=== PATIENT | male | born 1945 | race Caucasian/White ===

== ENCOUNTER 2020-12-21 10:03 | Inpatient (IN) | payer MEDICARE, MEDICAID ==
[~2020-12-21] VITALS: Ht 177.8 cm; Wt 140.9 kg
[~2020-12-21 10:03] MED LIST: ACET-2247 PO; CLON0.1T2 PO; FURO20 PO; POTA8TAB71 PO; VIT60OIN3 TP
[2020-12-21] MEDS ORDERED: VANCOMYCIN HCL 1 GM/D5% WATER 200 ML IV ONE (11:00)
[2020-12-21 12:56] LABS: BASOPHILS % (AUTO) 0.9 % (0.0-2.0); EOSINOPHILS % (AUTO) 2.6 % (1.0-6.0); HEMATOCRIT 42.8 % (41-53); HEMOGLOBIN 13.7 g/dL (13.5-17.5); LYMPHOCYTES # (AUTO) 1.4 K/uL (1.0-4.8); LYMPHOCYTES % (AUTO) 19.1 % (22.0-44.0); MEAN CORPUSCULAR HEMOGLOBIN 26.6 pg (26.0-34.0); MEAN CORPUSCULAR HGB CONC 32.1 G/dL (31.0-37.0); MEAN CORPUSCULAR VOLUME 83 fL (80-100); MONOCYTES # (AUTO) 0.6 K/uL (0.1-1.0); MONOCYTES % (AUTO) 7.9 % (2.0-9.0); NEUTROPHILS # (AUTO) 5.1 K/uL (1.8-7.7); NEUTROPHILS % (AUTO) 69.5 % (40.0-70.0); PLATELET COUNT (AUTO) 239 K/uL (150-450); RED BLOOD CELL COUNT(AUTO) 5.17 MIL/uL (4.50-5.90); RED CELL DISTRIBUTION WIDTH 16.1 % (11.5-14.5)
[2020-12-21 13:03] LABS: CALCIUM, TOTAL 8.6 mg/dL (8.8-10.5); CREATININE 1.19 mg/dL (0.60-1.30); POTASSIUM 4.4 mmol/L (3.5-5.1)
[2020-12-21 13:11] LABS: LACTIC ACID 0.8 mmol/L (0.4-2.0)
[2020-12-21 13:27] LABS: ALBUMIN 3.3 g/dL (3.4-5.0); BILIRUBIN,TOTAL 0.4 mg/dL (0.1-1.0); TOTAL PROTEIN, SERUM 7.7 g/dL (6.4-8.2)
[2020-12-21 13:38] LABS: COVID AG,FIA SOURCE NASOPHARYNGEAL
[2020-12-21] MEDS ORDERED: CloNIDine HCL 0.1 MG TABLET PO PRN (14:00)
[2020-12-21] MEDS ORDERED: AmLODIPine BESYLATE 5 MG TABLET PO SCH (14:00)
[2020-12-21] MEDS ORDERED: ACETAMINOPHEN 325 MG TABLET PO PRN (14:00)
[2020-12-21] MEDS: SULFAMETHOX/TRIMETH DS 800-160 MG/TABLET PO SCH ×2 (14:31→20:58)
[2020-12-21] MEDS: HEPARIN SODIUM,PORCINE 5,000 UNITS/ML VIAL SQ SCH ×2 (15:57→23:45)
[2020-12-21] MEDS: OxyCODONE HCL/ACETAMINOPHEN 5-325 MG TABLET PO PRN ×2 (16:02→23:47)
[2020-12-21 19:02] VITALS: BP 160/72
[2020-12-21] MEDS: DOCUSATE SODIUM 100 MG CAPSULE PO SCH (20:58)
[2020-12-21] MEDS: LOSARTAN POTASSIUM 25 MG TABLET PO SCH (20:58)
[2020-12-22 00:02] VITALS: BP 148/71
[2020-12-22] MEDS: OxyCODONE HCL/ACETAMINOPHEN 5-325 MG TABLET PO PRN ×2 (04:07→08:34)
[2020-12-22 04:08] VITALS: BP 128/64
[2020-12-22] MEDS ORDERED: INFLUENZA VIRUS VACCINE QVS 2020-21 (6MO+)/PF 60 MCG/0.5 ML SYRINGE IM ONE (06:15)
[2020-12-22 08:06] VITALS: BP 134/76
[2020-12-22] MEDS: ASPIRIN 81 MG CHEWABLE TABLET PO SCH (08:34)
[2020-12-22] MEDS: LOSARTAN POTASSIUM 25 MG TABLET PO SCH ×2 (08:34→20:21)
[2020-12-22] MEDS: FAMOTIDINE 20 MG TABLET PO SCH (08:34)
[2020-12-22] MEDS: DOCUSATE SODIUM 100 MG CAPSULE PO SCH ×2 (08:34→20:21)
[2020-12-22] MEDS: HEPARIN SODIUM,PORCINE 5,000 UNITS/ML VIAL SQ SCH ×2 (08:35→16:15)
[2020-12-22] MEDS: SULFAMETHOX/TRIMETH DS 800-160 MG/TABLET PO SCH ×2 (08:40→20:21)
[2020-12-22 11:35] VITALS: BP 128/74
[2020-12-22 16:03] VITALS: BP 135/72
[2020-12-22 20:10] VITALS: BP 141/53
[2020-12-23 00:10] VITALS: BP 125/59
[2020-12-23] MEDS: HEPARIN SODIUM,PORCINE 5,000 UNITS/ML VIAL SQ SCH ×4 (00:23→23:49)
[2020-12-23 04:45] VITALS: BP 140/69
[2020-12-23] MEDS: OxyCODONE HCL/ACETAMINOPHEN 5-325 MG TABLET PO PRN (05:04)
[2020-12-23 08:50] VITALS: BP 124/51
[2020-12-23] MEDS: DOCUSATE SODIUM 100 MG CAPSULE PO SCH ×2 (09:04→21:57)
[2020-12-23] MEDS: FAMOTIDINE 20 MG TABLET PO SCH (09:04)
[2020-12-23] MEDS: ASPIRIN 81 MG CHEWABLE TABLET PO SCH (09:04)
[2020-12-23] MEDS: LOSARTAN POTASSIUM 25 MG TABLET PO SCH ×2 (09:04→21:57)
[2020-12-23] MEDS: SULFAMETHOX/TRIMETH DS 800-160 MG/TABLET PO SCH ×2 (09:04→21:57)
[2020-12-23 09:36] LABS: BILIRUBIN,URINE NEGATIVE (NEGATIVE); GLUCOSE, URINE (UA) NEGATIVE (NEGATIVE); KETONES,URINE NEGATIVE (NEGATIVE); NITRATE,URINE NEGATIVE (NEGATIVE); PH,URINE 6.5 (5.0-8.0); PROTEIN,URINE NEGATIVE (NEGATIVE); UROBILINOGEN,URINE 0.2 mg/dL (<=1.0)
[2020-12-23 09:47] LABS: APPEARANCE,URINE HAZY (CLEAR); LEUKOCYTE ESTERASE ,URINE SMALL (NEGATIVE); OCCULT BLOOD,URINE SMALL (NEGATIVE)
[2020-12-23 09:50] LABS: BACTERIA,URINE Many /HPF (None Seen)
[2020-12-23 12:25] VITALS: BP 128/53
[2020-12-23 16:35] VITALS: BP 131/65
[2020-12-23 19:55] VITALS: BP 116/67
[2020-12-24] VITALS: BP 123/57
[2020-12-24 04:25] VITALS: BP 141/64
[2020-12-24] MEDS: OxyCODONE HCL/ACETAMINOPHEN 5-325 MG TABLET PO PRN (04:51)
[2020-12-24] MEDS: HEPARIN SODIUM,PORCINE 5,000 UNITS/ML VIAL SQ SCH (08:00)
[2020-12-24] MEDS: LOSARTAN POTASSIUM 25 MG TABLET PO SCH (08:00)
[2020-12-24] MEDS: DOCUSATE SODIUM 100 MG CAPSULE PO SCH (08:00)
[2020-12-24] MEDS: ASPIRIN 81 MG CHEWABLE TABLET PO SCH (08:00)
[2020-12-24] MEDS: FAMOTIDINE 20 MG TABLET PO SCH (08:00)
[2020-12-24] MEDS: SULFAMETHOX/TRIMETH DS 800-160 MG/TABLET PO SCH (08:00)
[2020-12-24 08:08] VITALS: BP 125/59
[2020-12-24] MEDS ORDERED: FUROSEMIDE 40 MG/4 ML VIAL IVP ONE (12:45)
[2020-12-24] MEDS ORDERED: ASPI81TA87 PO (14:02)
[2020-12-24] MEDS ORDERED: DOCU-275 PO (14:02)
[2020-12-24] MEDS ORDERED: FUROSEMIDE 40 MG/4 ML VIAL IVP SCH (21:00)
== END 2020-12-24 14:20 | DRG 603 ==
LOC: EMS 10:07 → 6N 18:01
PROVIDERS: ADMIT Internal Medicine; ATTEND Internal Medicine
DX: L03.115 Cellulitis of right lower limb (principal); N39.0 Urinary tract infection, site not specified; I25.10 Atherosclerotic heart disease of native coronary artery without angina pectoris; I10 Essential (primary) hypertension; I89.0 Lymphedema, not elsewhere classified; I87.8 Other specified disorders of veins; L03.116 Cellulitis of left lower limb; K21.9 Gastro-esophageal reflux disease without esophagitis; Z20.822 Contact with and (suspected) exposure to COVID-19; J44.9 Chronic obstructive pulmonary disease, unspecified; Z87.891 Personal history of nicotine dependence; Z91.041 Radiographic dye allergy status; Z28.21 Immunization not carried out because of patient refusal
CPT/HCPCS: 83605; 87040; 87081; 87086; 87426; 93970; 99285; J1644; J1940; J3370

== ENCOUNTER 2022-03-07 15:43 | Emergency (ER) | payer MEDICAID, MEDICARE ==
[~2022-03-07] VITALS: Ht 172.7 cm; Wt 132.9 kg
[~2022-03-07 15:43] MED LIST changes: +ASPI81TA87 PO; +DOCU-385 PO; +FAMO20 PO
[2022-03-07 17:34] LABS: BASOPHILS % (AUTO) 0.2 % (0.0-2.0); EOSINOPHILS % (AUTO) 3.6 % (1.0-6.0); HEMATOCRIT 36.9 % (41-53); HEMOGLOBIN 11.9 g/dL (13.5-17.5); LYMPHOCYTES # (AUTO) 1.4 K/uL (1.0-4.8); LYMPHOCYTES % (AUTO) 15.1 % (22.0-44.0); MEAN CORPUSCULAR HEMOGLOBIN 25.9 pg (26.0-34.0); MEAN CORPUSCULAR HGB CONC 32.1 G/dL (31.0-37.0); MEAN CORPUSCULAR VOLUME 81 fL (80-100); MONOCYTES # (AUTO) 0.6 K/uL (0.1-1.0); MONOCYTES % (AUTO) 6.9 % (2.0-9.0); NEUTROPHILS # (AUTO) 6.9 K/uL (1.8-7.7); NEUTROPHILS % (AUTO) 74.2 % (40.0-70.0); PLATELET COUNT (AUTO) 263 K/uL (150-450); RED BLOOD CELL COUNT(AUTO) 4.59 MIL/uL (4.50-5.90); RED CELL DISTRIBUTION WIDTH 16.1 % (11.5-14.5)
[2022-03-07 17:37] LABS: ANION GAP 6 mmol/L (8-16); CALCIUM, TOTAL 8.4 mg/dL (8.8-10.5); CARBON DIOXIDE 31 mmol/L (22-29); CHLORIDE 102 mmol/L (98-107); CREATININE 1.04 mg/dL (0.60-1.30); GLOMERULAR FILTR. RATE CALC > 60 mL/min (>60); GLUCOSE,RANDOM 91 mg/dL (70-110); POTASSIUM 3.8 mmol/L (3.5-5.1); SODIUM SERUM 139 mmol/L (136-145); UREA NITROGEN, BLOOD 15 mg/dL (7-18)
[2022-03-07 17:43] LABS: ALANINE AMINOTRANSFERASE 19 U/L (12-78); ALBUMIN 2.4 g/dL (3.4-5.0); ALKALINE PHOSPHATASE 68 U/L (46-116); ASPARTATE AMINOTRANSFERASE 18 U/L (15-37); BILIRUBIN,TOTAL 0.3 mg/dL (0.1-1.0); TOTAL PROTEIN, SERUM 8.8 g/dL (6.4-8.2)
[2022-03-07 17:59] LABS: B-TYPE NATRIURETIC PEPTIDE 208 pg/mL (0-100)
[2022-03-07] MEDS ORDERED: BACITRACIN ZINC/POLYMYXIN B 14.2 GM OINTMENT TP ONE (19:30)
[2022-03-07] MEDS ORDERED: CEPHALEXIN MONOHYDRATE 500 MG CAPSULE PO ONE (19:30)
[2022-03-07] MEDS ORDERED: SULFAMETHOX/TRIMETH DS 800-160 MG/TABLET PO ONE (19:30)
[2022-03-07 20:25] VITALS: BP 159/78
[2022-03-07] MEDS ORDERED: CEPH-558 PO (21:02)
[2022-03-07] MEDS ORDERED: POTA8TAB71 PO (21:02)
[2022-03-07] MEDS ORDERED: LOSA-382 PO (21:02)
[2022-03-07] MEDS ORDERED: SPIR50TA27 PO (21:02)
[2022-03-07] MEDS ORDERED: BACTDSB PO (21:02)
[2022-03-07] MEDS ORDERED: NYST15PO3 TP (21:02)
[2022-03-07] MEDS ORDERED: AMMO225L14 TP (21:02)
[2022-03-07] MEDS ORDERED: FURO40 PO (21:02)
[2022-03-07] MEDS ORDERED: BACI28OI29 TP (21:02)
[2022-03-07] MEDS ORDERED: ATOR40TA28 PO (21:02)
== END 2022-03-07 21:54 | disposition home or self-care (01) ==
LOC: EMS 15:43
DX: L03.116 Cellulitis of left lower limb (principal); L03.115 Cellulitis of right lower limb; I87.8 Other specified disorders of veins; I87.2 Venous insufficiency (chronic) (peripheral); I10 Essential (primary) hypertension; J44.9 Chronic obstructive pulmonary disease, unspecified; K21.9 Gastro-esophageal reflux disease without esophagitis; F17.210 Nicotine dependence, cigarettes, uncomplicated; Z88.8 Allergy status to other drugs, medicaments and biological substances; Z79.899 Other long term (current) drug therapy
CPT/HCPCS: 80053; 83880; 85025; 99284

== ENCOUNTER 2022-04-17 07:01 | Emergency (ER) | payer MEDICAID ==
[~2022-04-17] VITALS: Ht 175.3 cm; Wt 136.4 kg
[~2022-04-17 07:01] MED LIST changes: +AMMO225L14 TP; +ATOR40TA28 PO; +BACI28OI29 TP; +BACTDSB PO; +CEPH-558 PO; +FURO40 PO; +LOSA-382 PO; +NYST15PO3 TP; +SPIR50TA27 PO
[2022-04-17] MEDS ORDERED: ASPIRIN 81 MG CHEWABLE TABLET PO ONE (07:15)
[2022-04-17 07:49] LABS: EOSINOPHILS % (AUTO) 3.5 % (1.0-6.0); HEMATOCRIT 34.4 % (41-53); LYMPHOCYTES # (AUTO) 1.4 K/uL (1.0-4.8); LYMPHOCYTES % (AUTO) 25.2 % (22.0-44.0); MEAN CORPUSCULAR HEMOGLOBIN 26.3 pg (26.0-34.0); MEAN CORPUSCULAR VOLUME 82 fL (80-100); MONOCYTES # (AUTO) 0.5 K/uL (0.1-1.0); MONOCYTES % (AUTO) 7.9 % (2.0-9.0); NEUTROPHILS # (AUTO) 3.6 K/uL (1.8-7.7); NEUTROPHILS % (AUTO) 62.4 % (40.0-70.0); PLATELET COUNT (AUTO) 198 K/uL (150-450); RED BLOOD CELL COUNT(AUTO) 4.19 MIL/uL (4.50-5.90); RED CELL DISTRIBUTION WIDTH 18.2 % (11.5-14.5)
[2022-04-17] MEDS ORDERED: DOXY-354 PO (07:57)
[2022-04-17] MEDS ORDERED: LISI-894 PO (07:57)
[2022-04-17 08:08] LABS: CALCIUM, TOTAL 8.2 mg/dL (8.8-10.5); CREATININE 1.21 mg/dL (0.60-1.30); POTASSIUM 4.2 mmol/L (3.5-5.1)
[2022-04-17 08:34] LABS: ALBUMIN 2.5 g/dL (3.4-5.0); BILIRUBIN,TOTAL 0.2 mg/dL (0.1-1.0); TOTAL PROTEIN, SERUM 7.6 g/dL (6.4-8.2)
[2022-04-17 10:04] VITALS: BP 125/60
[2022-04-17] MEDS ORDERED: IBUP-2070 PO (10:21)
[2022-04-18] MEDS ORDERED: VITS42.53 TP (12:48)
[2022-04-20] MEDS ORDERED: ATOR40TA71 PO (13:30)
[2022-04-20] MEDS ORDERED: ASPI81 PO (13:30)
== END 2022-04-17 13:19 | disposition home or self-care (01) ==
LOC: EMS 07:01
DX: M25.512 Pain in left shoulder (principal); F10.20 Alcohol dependence, uncomplicated; F17.210 Nicotine dependence, cigarettes, uncomplicated; I10 Essential (primary) hypertension; I25.10 Atherosclerotic heart disease of native coronary artery without angina pectoris; J44.9 Chronic obstructive pulmonary disease, unspecified; K21.9 Gastro-esophageal reflux disease without esophagitis
CPT/HCPCS: 71045; 80053; 82550; 83880; 84484; 85025; 93005; 99285; 36415-L1; 36415-TC

== ENCOUNTER 2022-05-10 13:21 | Emergency (ER) | payer MEDICAID, MEDICARE ==
[~2022-05-10] VITALS: Ht 175.3 cm; Wt 131.8 kg
[~2022-05-10 13:21] MED LIST changes: -ACET-2247 PO; -AMMO225L14 TP; +ASPI81 PO; -ASPI81TA87 PO; -ATOR40TA28 PO; +ATOR40TA71 PO; -BACI28OI29 TP; -BACTDSB PO; -CEPH-558 PO; -CLON0.1T2 PO; -DOCU-385 PO; -FAMO20 PO; -FURO20 PO; -LOSA-382 PO; -NYST15PO3 TP; -VIT60OIN3 TP
[2022-05-10 14:15] LABS: BASOPHILS % (AUTO) 0.8 % (0.0-2.0); EOSINOPHILS % (AUTO) 3.7 % (1.0-6.0); HEMATOCRIT 37.6 % (41-53); HEMOGLOBIN 11.9 g/dL (13.5-17.5); LYMPHOCYTES # (AUTO) 1.2 K/uL (1.0-4.8); MEAN CORPUSCULAR HEMOGLOBIN 26.1 pg (26.0-34.0); MEAN CORPUSCULAR HGB CONC 31.8 G/dL (31.0-37.0); MEAN CORPUSCULAR VOLUME 82 fL (80-100); MONOCYTES # (AUTO) 0.5 K/uL (0.1-1.0); MONOCYTES % (AUTO) 11.2 % (2.0-9.0); NEUTROPHILS # (AUTO) 2.4 K/uL (1.8-7.7); NEUTROPHILS % (AUTO) 56.3 % (40.0-70.0); PLATELET COUNT (AUTO) 200 K/uL (150-450); RED BLOOD CELL COUNT(AUTO) 4.57 MIL/uL (4.50-5.90); RED CELL DISTRIBUTION WIDTH 17.3 % (11.5-14.5)
[2022-05-10 14:23] LABS: ANION GAP 4 mmol/L (8-16); CALCIUM, TOTAL 8.5 mg/dL (8.8-10.5); CARBON DIOXIDE 32 mmol/L (22-29); CHLORIDE 106 mmol/L (98-107); CREATININE 1.06 mg/dL (0.60-1.30); GLOMERULAR FILTR. RATE CALC > 60 mL/min (>60); GLUCOSE,RANDOM 106 mg/dL (70-110); POTASSIUM 3.9 mmol/L (3.5-5.1); SODIUM SERUM 142 mmol/L (136-145); UREA NITROGEN, BLOOD 20 mg/dL (7-18)
[2022-05-10 14:28] LABS: INR 1.1 (0.9-1.1); PROTHROMBIN TIME 11.7 SEC (9.4-11.6)
[2022-05-10 14:29] LABS: ALANINE AMINOTRANSFERASE 21 U/L (12-78); ALBUMIN 2.7 g/dL (3.4-5.0); ALKALINE PHOSPHATASE 67 U/L (46-116); ASPARTATE AMINOTRANSFERASE 18 U/L (15-37); BILIRUBIN,TOTAL 0.2 mg/dL (0.1-1.0); TOTAL PROTEIN, SERUM 7.1 g/dL (6.4-8.2)
[2022-05-10 14:32] LABS: B-TYPE NATRIURETIC PEPTIDE 128 pg/mL (0-100)
[2022-05-10 15:46] VITALS: BP 146/70
== END 2022-05-10 16:58 | disposition home or self-care (01) ==
LOC: EMS 13:22
DX: R07.89 Other chest pain (principal); I10 Essential (primary) hypertension; J44.9 Chronic obstructive pulmonary disease, unspecified; K21.9 Gastro-esophageal reflux disease without esophagitis; F17.210 Nicotine dependence, cigarettes, uncomplicated; Z88.8 Allergy status to other drugs, medicaments and biological substances; Z79.899 Other long term (current) drug therapy
CPT/HCPCS: 71045; 80053; 83880; 84484; 85025; 85610; 85730; 93005; 99285; 36415-L1; 36415-TC

== ENCOUNTER 2022-05-13 10:55 | Emergency (ER) | payer MEDICARE, MEDICAID ==
[~2022-05-13] VITALS: Ht 175.3 cm; Wt 136.4 kg
[2022-05-13 11:37] LABS: BASOPHILS % (AUTO) 0.5 % (0.0-2.0); EOSINOPHILS % (AUTO) 0.9 % (1.0-6.0); HEMATOCRIT 40.9 % (41-53); HEMOGLOBIN 13.1 g/dL (13.5-17.5); LYMPHOCYTES # (AUTO) 0.7 K/uL (1.0-4.8); LYMPHOCYTES % (AUTO) 10.7 % (22.0-44.0); MEAN CORPUSCULAR HEMOGLOBIN 26.2 pg (26.0-34.0); MEAN CORPUSCULAR HGB CONC 32.2 G/dL (31.0-37.0); MEAN CORPUSCULAR VOLUME 82 fL (80-100); MONOCYTES # (AUTO) 0.4 K/uL (0.1-1.0); MONOCYTES % (AUTO) 5.8 % (2.0-9.0); NEUTROPHILS % (AUTO) 82.1 % (40.0-70.0); PLATELET COUNT (AUTO) 182 K/uL (150-450); RED BLOOD CELL COUNT(AUTO) 5.01 MIL/uL (4.50-5.90)
[2022-05-13 11:41] LABS: ANION GAP 7 mmol/L (8-16); CALCIUM, TOTAL 8.3 mg/dL (8.8-10.5); CARBON DIOXIDE 29 mmol/L (22-29); CHLORIDE 101 mmol/L (98-107); GLUCOSE,RANDOM 88 mg/dL (70-110); SODIUM SERUM 137 mmol/L (136-145); UREA NITROGEN, BLOOD 10 mg/dL (7-18)
[2022-05-13 11:43] LABS: GLOMERULAR FILTR. RATE CALC > 60 mL/min (>60)
[2022-05-13 11:46] LABS: INR 1.2 (0.9-1.1); PROTHROMBIN TIME 12.5 SEC (9.4-11.6)
[2022-05-13 11:47] LABS: ALANINE AMINOTRANSFERASE 17 U/L (12-78); ALBUMIN 2.8 g/dL (3.4-5.0); ALKALINE PHOSPHATASE 74 U/L (46-116); ASPARTATE AMINOTRANSFERASE 18 U/L (15-37); BILIRUBIN,TOTAL 0.7 mg/dL (0.1-1.0); TOTAL PROTEIN, SERUM 7.5 g/dL (6.4-8.2)
[2022-05-13 11:55] LABS: B-TYPE NATRIURETIC PEPTIDE 130 pg/mL (0-100)
[2022-05-13 13:40] VITALS: BP 141/72
== END 2022-05-13 15:36 | disposition home or self-care (01) ==
LOC: EMS 11:07
DX: R07.89 Other chest pain (principal); F41.9 Anxiety disorder, unspecified; F10.20 Alcohol dependence, uncomplicated; F17.210 Nicotine dependence, cigarettes, uncomplicated; I10 Essential (primary) hypertension; I25.10 Atherosclerotic heart disease of native coronary artery without angina pectoris; I89.0 Lymphedema, not elsewhere classified; J44.9 Chronic obstructive pulmonary disease, unspecified; K21.9 Gastro-esophageal reflux disease without esophagitis
CPT/HCPCS: 71045; 80053; 83880; 84484; 85025; 85610; 85730; 93005; 99285; 36415-L1; 36415-TC

== ENCOUNTER 2022-09-01 00:41 | Emergency (ER) | payer MEDICAID, MEDICARE ==
[~2022-09-01] VITALS: Ht 177.8 cm; Wt 131.8 kg
[~2022-09-01 00:41] MED LIST changes: +SULF1TAB42 PO
[2022-09-01] MEDS ORDERED: SODIUM CHLORIDE 0.9% 250 ML IRRIG SOLUTION BOTTLE IRRIG ONE (02:00)
[2022-09-01] MEDS ORDERED: PERTUSS(ACELL),DIPH,TET VAC/PF 0.5 ML SYRINGE IM. ONE (02:00)
[2022-09-01] MEDS ORDERED: BACITRACIN 0.9 GM PACKET OINTMENT TP ONE (02:00)
[2022-09-01] MEDS ORDERED: ACETAMINOPHEN 500 MG TABLET PO ONE (06:00)
[2022-09-01 06:32] VITALS: BP 124/77
== END 2022-09-01 07:09 | disposition home or self-care (01) ==
LOC: EMS 00:42
DX: S00.83XA Contusion of other part of head, initial encounter (principal); F10.20 Alcohol dependence, uncomplicated; J44.9 Chronic obstructive pulmonary disease, unspecified; I10 Essential (primary) hypertension; K21.9 Gastro-esophageal reflux disease without esophagitis; I25.10 Atherosclerotic heart disease of native coronary artery without angina pectoris; I25.2 Old myocardial infarction; F17.210 Nicotine dependence, cigarettes, uncomplicated; F12.90 Cannabis use, unspecified, uncomplicated; Z90.49 Acquired absence of other specified parts of digestive tract; W01.118A Fall on same level from slipping, tripping and stumbling with subsequent striking against other sharp object, initial encounter; Y93.84 Activity, sleeping; Y92.89 Other specified places as the place of occurrence of the external cause; Y99.8 Other external cause status
CPT/HCPCS: 70450; 72125; 90471; 90715; 99285

== ENCOUNTER 2024-01-21 21:13 | Emergency (ER) | payer MEDICARE, MEDICAID ==
[~2024-01-21] VITALS: Ht 175.3 cm; Wt 136.4 kg
[~2024-01-21 21:13] MED LIST changes: +AMLO-257 PO; +ASPI-1450 PO; -ASPI81 PO; +ERGO500054 PO; +METO-408 PO; +PANT20TA18 PO; -POTA8TAB71 PO; -SPIR50TA27 PO; -SULF1TAB42 PO
[2024-01-22 01:33] VITALS: PULSE 66; RESP 18; O2SAT 86
[2024-01-22] MEDS: ALBUTEROL SULFATE 2.5 MG/0.5 ML NEB SOLUTION NEB ONE (01:33)
[2024-01-22] MEDS: IPRATROPIUM BROMIDE 0.5 MG/2.5 ML NEB SOLUTION NEB ONE (01:33)
[2024-01-22 01:48] VITALS: PULSE 71; RESP 18; O2SAT 95
[2024-01-22 03:30] VITALS: BP 133/94; PULSE 78; RESP 20; TEMP 98.7
== END 2024-01-22 04:09 | disposition home or self-care (01) ==
LOC: EMS 21:13
DX: R04.0 Epistaxis (principal); J44.9 Chronic obstructive pulmonary disease, unspecified; I25.10 Atherosclerotic heart disease of native coronary artery without angina pectoris; K21.9 Gastro-esophageal reflux disease without esophagitis; I25.2 Old myocardial infarction; F17.210 Nicotine dependence, cigarettes, uncomplicated; Z90.49 Acquired absence of other specified parts of digestive tract
CPT/HCPCS: 94640; 99283

== ENCOUNTER 2024-07-29 09:06 | Inpatient (IN) | payer MEDICARE, MEDICAID ==
[~2024-07-29] VITALS: Ht 180.3 cm; Wt 151.0 kg
[~2024-07-29 09:06] MED LIST changes: -AMLO-257 PO; +BUDE0.5A NEB; +BUME1TAB6 PO; -FURO40 PO; +FURO40TA6 PO; +IPRA3AMP24 NEB; -METO-408 PO; +METO25 PO; +NIFE-78 PO; -PANT20TA18 PO; +PANT40TA54 PO
[2024-07-29] MEDS ORDERED: ALBUTEROL SULFATE 2.5 MG/0.5 ML NEB SOLUTION NEB ONE (09:26)
[2024-07-29] MEDS ORDERED: IPRATROPIUM BROMIDE 0.5 MG/2.5 ML NEB SOLUTION NEB ONE (09:26)
[2024-07-29] MEDS ORDERED: EMPA10TA3 PO (09:30)
[2024-07-29] MEDS ORDERED: ALBU18HF12 IH (09:30)
[2024-07-29] MEDS ORDERED: BUSP10TA23 PO (09:30)
[2024-07-29] MEDS ORDERED: QUET25TA PO (09:30)
[2024-07-29] MEDS ORDERED: METO25XL PO (09:30)
[2024-07-29] MEDS ORDERED: FLUC200T85 PO (09:30)
[2024-07-29] MEDS ORDERED: AMLO-258 PO (09:30)
[2024-07-29] MEDS ORDERED: MELA5TAB40 PO (09:30)
[2024-07-29] MEDS ORDERED: SPIR-37 PO (09:30)
[2024-07-29] MEDS ORDERED: OXYC5 PO (09:30)
[2024-07-29 09:31] VITALS: PULSE 73; RESP 20; O2SAT 94
[2024-07-29] MEDS: IPRATROPIUM BROMIDE 0.5 MG/2.5 ML NEB SOLUTION NEB ONE (09:31)
[2024-07-29] MEDS: ALBUTEROL SULFATE 2.5 MG/0.5 ML 5 ML NEB SOLUTION NEB ONE (09:31)
[2024-07-29] MEDS: AZITHROMYCIN 500 MG/NS 250 ML IV ONE (09:49)
[2024-07-29] MEDS: MethylPREDNISolone SOD SUCC 125 MG/2 ML VIAL IVP ONE (09:49)
[2024-07-29] MEDS: CefTRIAXone 1 GM/DEXTROSE 50 ML IV ONE (09:49)
[2024-07-29 09:50] LABS: BASOPHILS % (AUTO) 0.7 % (0.0-2.0); EOSINOPHILS % (AUTO) 2.2 % (1.0-6.0); HEMATOCRIT 42.7 % (41-53); HEMOGLOBIN 13.2 g/dL (13.5-17.5); LYMPHOCYTES # (AUTO) 1.2 K/uL (1.0-4.8); LYMPHOCYTES % (AUTO) 13.8 % (22.0-44.0); MEAN CORPUSCULAR HEMOGLOBIN 26.1 pg (26.0-34.0); MEAN CORPUSCULAR VOLUME 84 fL (80-100); MONOCYTES # (AUTO) 0.6 K/uL (0.1-1.0); MONOCYTES % (AUTO) 6.8 % (2.0-9.0); NEUTROPHILS # (AUTO) 6.8 K/uL (1.8-7.7); NEUTROPHILS % (AUTO) 76.5 % (40.0-70.0); PLATELET COUNT (AUTO) 251 K/uL (150-450); RED BLOOD CELL COUNT(AUTO) 5.08 MIL/uL (4.50-5.90); RED CELL DISTRIBUTION WIDTH 15.4 % (11.5-14.5); WHITE BLOOD COUNT (AUTO) 8.8 K/uL (4.5-11.0)
[2024-07-29 10:02] LABS: PROTHROMBIN TIME 11.2 SEC (9.4-11.6)
[2024-07-29 10:07] LABS: TROPONIN I-HIGH SENSITIVITY 8 ng/L (<76)
[2024-07-29 10:09] LABS: B-TYPE NATRIURETIC PEPTIDE 27 pg/mL (0-100)
[2024-07-29 10:13] LABS: CARBON DIOXIDE 39 mmol/L (22-29)
[2024-07-29 10:18] LABS: ANION GAP 2 mmol/L (8-16); CALCIUM, TOTAL 8.5 mg/dL (8.8-10.5); CHLORIDE 97 mmol/L (98-107); CREATININE 0.97 mg/dL (0.60-1.30); GLOMERULAR FILTR. RATE CALC > 60 mL/min (>60); GLUCOSE,RANDOM 120 mg/dL (70-110); POTASSIUM 5.4 mmol/L (3.5-5.1); SODIUM SERUM 138 mmol/L (136-145); UREA NITROGEN, BLOOD 27 mg/dL (7-18)
[2024-07-29 10:19] LABS: ALANINE AMINOTRANSFERASE 23 U/L (12-78); ALBUMIN 2.7 g/dL (3.4-5.0); ALKALINE PHOSPHATASE 92 U/L (46-116); ASPARTATE AMINOTRANSFERASE 18 U/L (15-37); BILIRUBIN,TOTAL 0.2 mg/dL (0.1-1.0); CREATINE KINASE, TOTAL ONLY 32 U/L (39-308); TOTAL PROTEIN, SERUM 7.1 g/dL (6.4-8.2)
[2024-07-29 10:21] VITALS: PULSE 73; RESP 22; O2SAT 97
[2024-07-29] MEDS ORDERED: DEXTROSE 50%-WATER 25 GM/50 ML SYRINGE IVP PRN (11:00)
[2024-07-29] MEDS ORDERED: ALBUTEROL SULFATE 2.5 MG/0.5 ML NEB SOLUTION NEB PRN (11:00)
[2024-07-29] MEDS: MethylPREDNISolone SOD SUCC 125 MG/2 ML VIAL IVP SCH (11:03)
[2024-07-29 11:53] VITALS: BP 141/60; PULSE 86; RESP 20; TEMP 97.9; O2SAT 95
[2024-07-29] MEDS: FUROSEMIDE 40 MG TABLET PO SCH (12:52)
[2024-07-29] MEDS: INSULIN LISPRO 100 UNITS/ML SQ PRN (14:02)
[2024-07-29] MEDS ORDERED: OLANZapine 5 MG RAPDIS TABLET PO PRN (16:30)
[2024-07-29] MEDS: HEPARIN SODIUM,PORCINE 5,000 UNITS/ML VIAL SQ SCH (17:23)
[2024-07-29 19:45] VITALS: BP 113/59; PULSE 95; RESP 20; TEMP 97.9; O2SAT 93
[2024-07-29] MEDS: ESZOPICLONE 2 MG TABLET PO SCH (20:02)
[2024-07-29] MEDS: DOCUSATE SODIUM 100 MG CAPSULE PO SCH (20:02)
[2024-07-29] MEDS: OLANZapine 5 MG RAPDIS TABLET PO SCH (20:02)
[2024-07-29 23:16] LABS: GLUCOMETER DEV NAME(LOC) 5S.1C; GLUCOSE,POINT OF CARE 189 MG/DL (70-110)
[2024-07-30 00:45] VITALS: BP 149/79; PULSE 80; RESP 17; TEMP 98; O2SAT 95
[2024-07-30 05:10] LABS: GLUCOMETER DEV NAME(LOC) 5S.1C; GLUCOSE,POINT OF CARE 170 MG/DL (70-110)
[2024-07-30 05:30] VITALS: BP 144/56; PULSE 85; RESP 20; TEMP 97.7; O2SAT 95
[2024-07-30 08:00] VITALS: BP 108/52; PULSE 80; RESP 20; TEMP 97.7; O2SAT 94
[2024-07-30] MEDS: ASPIRIN 81 MG CHEWABLE TABLET PO SCH (08:58)
[2024-07-30] MEDS ORDERED: BuPROPion HCL 75 MG TABLET PO SCH (09:00)
[2024-07-30] MEDS: FAMOTIDINE 20 MG TABLET PO SCH (09:04)
[2024-07-30] MEDS: AmLODIPine BESYLATE 10 MG TABLET PO SCH (09:04)
[2024-07-30] MEDS: CefTRIAXone 1 GM/DEXTROSE 50 ML IV SCH (09:08)
[2024-07-30] MEDS: ACETAMINOPHEN 325 MG TABLET PO PRN (09:10)
[2024-07-30] MEDS ORDERED: SODIUM CHLORIDE 0.9% 250 ML IV ONE (09:16)
[2024-07-30 12:00] VITALS: BP 123/86; PULSE 85; RESP 14; TEMP 97.8; O2SAT 93
[2024-07-30 16:27] VITALS: BP 128/85; PULSE 82; RESP 18; TEMP 97.7; O2SAT 93
[2024-07-30 20:00] VITALS: BP 131/102; PULSE 88; RESP 18; TEMP 98.1; O2SAT 93
[2024-07-31 00:25] VITALS: BP 144/78; PULSE 75; RESP 18; TEMP 97.5; O2SAT 94
[2024-07-31] MEDS ORDERED: LORazepam 2 MG/ML VIAL IM PRN (01:30)
[2024-07-31] MEDS: LORazepam 2 MG/ML VIAL IVP PRN (01:52)
[2024-07-31 05:30] VITALS: BP 139/70; PULSE 91; RESP 18; TEMP 98.1; O2SAT 90
[2024-07-31 06:47] LABS: HEMATOCRIT 48.3 % (41-53); HEMOGLOBIN 15.2 g/dL (13.5-17.5); MEAN CORPUSCULAR HEMOGLOBIN 26.4 pg (26.0-34.0); MEAN CORPUSCULAR HGB CONC 31.6 G/dL (31.0-37.0); MEAN CORPUSCULAR VOLUME 84 fL (80-100); PLATELET COUNT (AUTO) 273 K/uL (150-450); RED BLOOD CELL COUNT(AUTO) 5.78 MIL/uL (4.50-5.90)
[2024-07-31 07:13] LABS: ALANINE AMINOTRANSFERASE 19 U/L (12-78); ALBUMIN 3.1 g/dL (3.4-5.0); ALKALINE PHOSPHATASE 81 U/L (46-116); ANION GAP 4 mmol/L (8-16); ASPARTATE AMINOTRANSFERASE 33 U/L (15-37); BILIRUBIN,TOTAL 0.3 mg/dL (0.1-1.0); CALCIUM, TOTAL 8.6 mg/dL (8.8-10.5); CARBON DIOXIDE 35 mmol/L (22-29); CHLORIDE 96 mmol/L (98-107); CREATININE 1.07 mg/dL (0.60-1.30); GLOMERULAR FILTR. RATE CALC > 60 mL/min (>60); GLUCOSE,RANDOM 129 mg/dL (70-110); POTASSIUM 5.4 mmol/L (3.5-5.1); SODIUM SERUM 135 mmol/L (136-145); TOTAL PROTEIN, SERUM 7.9 g/dL (6.4-8.2); UREA NITROGEN, BLOOD 39 mg/dL (7-18)
[2024-07-31] MEDS ORDERED: LORazepam 2 MG/ML VIAL IVP PRN (07:30)
[2024-07-31 07:38] LABS: BAND NEUTROPHILS % (MANUAL) 2 % (0-5); LYMPHOCYTES % (MANUAL) 8 % (22-44); MONOCYTES % (MANUAL) 3 % (2-9); SEGMENTED NEUTROPHILS % 87 % (40-70); TOTAL CELLS COUNTED 100
[2024-07-31 07:39] LABS: RBC MORPHOLOGY COMMENT NORMAL RBC MORPH
[2024-07-31 08:00] VITALS: BP 135/76; PULSE 97; RESP 19; TEMP 98.1; O2SAT 90
[2024-07-31] MEDS: SODIUM POLYSTYRENE SULFONATE 15 GM/60 ML SUSPENSION BOTTLE PO ONE (11:22)
[2024-07-31] MEDS: FUROSEMIDE 20 MG/2 ML VIAL IVP ONE (11:30)
[2024-07-31 11:37] LABS: GLUCOMETER DEV NAME(LOC) 5N.2C; GLUCOSE,POINT OF CARE 185 MG/DL (70-110)
[2024-07-31 11:37] LABS: GLUCOMETER DEV NAME(LOC) 5N.2C; GLUCOSE,POINT OF CARE 161 MG/DL (70-110)
[2024-07-31 11:37] LABS: GLUCOMETER DEV NAME(LOC) 5N.2C; GLUCOSE,POINT OF CARE 154 MG/DL (70-110)
[2024-07-31 11:37] LABS: GLUCOMETER DEV NAME(LOC) 5N.2C; GLUCOSE,POINT OF CARE 161 MG/DL (70-110)
[2024-07-31 11:37] LABS: GLUCOMETER DEV NAME(LOC) 5N.2C; GLUCOSE,POINT OF CARE 205 MG/DL (70-110)
[2024-07-31 11:37] LABS: GLUCOMETER DEV NAME(LOC) 5N.2C; GLUCOSE,POINT OF CARE 206 MG/DL (70-110)
[2024-07-31 11:37] LABS: GLUCOMETER DEV NAME(LOC) 5N.2C; GLUCOSE,POINT OF CARE 210 MG/DL (70-110)
[2024-07-31 12:12] VITALS: BP 133/72; PULSE 92; RESP 20; TEMP 98.1; O2SAT 96
[2024-07-31 17:22] VITALS: BP 129/54; PULSE 58; RESP 20; TEMP 98; O2SAT 96
[2024-07-31 20:00] VITALS: BP 139/80; PULSE 99; RESP 18; TEMP 97.9; O2SAT 95
[2024-08-01 02:21] LABS: GLUCOMETER DEV NAME(LOC) 6S.2; GLUCOSE,POINT OF CARE 194 MG/DL (70-110)
[2024-08-01 02:21] LABS: GLUCOMETER DEV NAME(LOC) 6S.2; GLUCOSE,POINT OF CARE 156 MG/DL (70-110)
[2024-08-01 04:00] VITALS: BP 146/80; PULSE 99; RESP 18; TEMP 98.6; O2SAT 95
[2024-08-01 08:00] LABS: GLUCOMETER DEV NAME(LOC) 6S.2; GLUCOSE,POINT OF CARE 160 MG/DL (70-110)
[2024-08-01] MEDS ORDERED: SODIUM CHLORIDE 0.9% 500 ML IV ONE (08:14)
[2024-08-01 09:29] VITALS: BP 136/78; PULSE 92; RESP 15; TEMP 98.7; O2SAT 94
[2024-08-01] MEDS ORDERED: CEFT1VIA65 IV (11:00)
[2024-08-01] MEDS ORDERED: FAMO20 PO (11:02)
[2024-08-01] MEDS ORDERED: ESZO2TAB46 PO (11:02)
[2024-08-01] MEDS ORDERED: OLAN7.5T22 PO (11:03)
[2024-08-01] MEDS ORDERED: FURO40TA6 PO (11:03)
[2024-08-01] MEDS ORDERED: ACET-2247 PO (11:04)
[2024-08-01] MEDS ORDERED: ALBU2.5V39 NEB (11:05)
[2024-08-01] MEDS ORDERED: OLAN5TAB52 PO (11:06)
[2024-08-01] MEDS ORDERED: PRED-554 PO (11:11)
[2024-08-01] MEDS ORDERED: INSU100V SQ (11:13)
[2024-08-01 15:23] LABS: HEMATOCRIT 47.1 % (41-53); HEMOGLOBIN 14.5 g/dL (13.5-17.5); MEAN CORPUSCULAR HGB CONC 30.7 G/dL (31.0-37.0); MEAN CORPUSCULAR VOLUME 85 fL (80-100); PLATELET COUNT (AUTO) 301 K/uL (150-450); RED BLOOD CELL COUNT(AUTO) 5.58 MIL/uL (4.50-5.90); RED CELL DISTRIBUTION WIDTH 15.8 % (11.5-14.5); WHITE BLOOD COUNT (AUTO) 12.6 K/uL (4.5-11.0)
[2024-08-01 15:30] LABS: CALCIUM, TOTAL 8.3 mg/dL (8.8-10.5); CHLORIDE 98 mmol/L (98-107); CREATININE 0.97 mg/dL (0.60-1.30); GLOMERULAR FILTR. RATE CALC > 60 mL/min (>60); GLUCOSE,RANDOM 158 mg/dL (70-110); POTASSIUM 4.8 mmol/L (3.5-5.1); SODIUM SERUM 140 mmol/L (136-145); UREA NITROGEN, BLOOD 45 mg/dL (7-18)
[2024-08-01 15:32] LABS: CARBON DIOXIDE 44 mmol/L (22-29)
[2024-08-01 15:33] LABS: ANION GAP 0 mmol/L (8-16)
[2024-08-01 15:35] VITALS: BP 142/74; PULSE 95; RESP 19; TEMP 98; O2SAT 96
[2024-08-01 15:56] LABS: RBC MORPHOLOGY COMMENT NORMAL RBC MORPH
[2024-08-01 15:59] LABS: BAND NEUTROPHILS % (MANUAL) 2 % (0-5); EOSINOPHILS % (MANUAL) 1 % (1-6); LYMPHOCYTES % (MANUAL) 8 % (22-44); MONOCYTES % (MANUAL) 5 % (2-9); SEGMENTED NEUTROPHILS % 84 % (40-70); TOTAL CELLS COUNTED 100
[2024-08-01 19:58] VITALS: BP 149/62; PULSE 73; RESP 18; TEMP 98; O2SAT 97
[2024-08-02 16:50] LABS: GLUCOMETER DEV NAME(LOC) 6S.2; GLUCOSE,POINT OF CARE 163 MG/DL (70-110)
[2024-08-02 16:50] LABS: GLUCOMETER DEV NAME(LOC) 6S.2; GLUCOSE,POINT OF CARE 158 MG/DL (70-110)
[2024-08-03 12:31] LABS: GLUCOMETER DEV NAME(LOC) 5N.1D; GLUCOSE,POINT OF CARE 182 MG/DL (70-110)
== END 2024-08-01 20:10 | DRG 291 ==
LOC: EMS 09:06 → EDH 10:52 → 5S 11:42 → 6S 07-31 12:00
PROVIDERS: ADMIT Internal Medicine; ATTEND Internal Medicine
DX: I11.0 Hypertensive heart disease with heart failure (principal); I50.33 Acute on chronic diastolic (congestive) heart failure; J96.21 Acute and chronic respiratory failure with hypoxia; J44.1 Chronic obstructive pulmonary disease with (acute) exacerbation; F23 Brief psychotic disorder; F31.60 Bipolar disorder, current episode mixed, unspecified; Z68.42 Body mass index [BMI] 45.0-49.9, adult; G47.33 Obstructive sleep apnea (adult) (pediatric); R41.0 Disorientation, unspecified; E66.01 Morbid (severe) obesity due to excess calories; I25.10 Atherosclerotic heart disease of native coronary artery without angina pectoris; E87.5 Hyperkalemia; F10.20 Alcohol dependence, uncomplicated; K21.9 Gastro-esophageal reflux disease without esophagitis; F41.9 Anxiety disorder, unspecified; F12.10 Cannabis abuse, uncomplicated; Z79.82 Long term (current) use of aspirin; Z79.899 Other long term (current) drug therapy; Z87.891 Personal history of nicotine dependence
CPT/HCPCS: 71045; 80048; 80053; 82550; 82962; 83880; 84484; 85025; 85610; 85730; 93005; 94644; 99285; J0456; J0696; J1644; J1940; J2060; J2919; J7040; J7050; 36415-L1; 36415-TC; J7613